=== PATIENT | female | born 1980 | race Caucasian/White ===

== ENCOUNTER 2020-10-03 12:47 | Outpatient (REF) | payer OTHER, SELFPAY | END 2020-10-03 12:48 | disposition home or self-care (01) | LOC: HO.LAB 12:47 | PROVIDERS: PCP Internal Medicine; Visit Provider Internal Medicine | DX: Z20.828 Contact with and (suspected) exposure to other viral communicable diseases (principal) | CPT/HCPCS: C9803; U0003 ==

== ENCOUNTER 2022-08-20 09:56 | Outpatient (REF) | payer OTHER, SELFPAY ==
--- NOTE | ~2022-08-20 | US_ITS ---
EXAMINATION: LEFT LOWER EXTREMITY DEEP VENOUS ULTRASOUND CLINICAL INFORMATION: SIDE lower extremity complaint. COMPARISON: None. TECHNIQUE: Duplex Doppler imaging with compression maneuvers were performed of the left lower extremity deep venous system. FINDINGS: The visualized common femoral, femoral and popliteal veins demonstrate normal compressibility and color flow without evidence of venous thrombosis. Visualized portions of the calf veins demonstrate normal color fill-in suggesting patency. Within the popliteal fossa there is a mildly complex Keller's cyst which measures approximately 3.2 x 1.4 x 1.8 cm. Within the distal aspect of the anteromedial calf there is a mildly complex superficial fluid collection which measures approximately 5 x 1 cm. US/US venous duplex LE LT IMPRESSION: -No evidence of deep venous thrombosis involving the left lower extremity. -Small to moderate-sized mildly complex Keller's cyst. -Mildly complex superficial fluid collection within the anteromedial distal calf. Clinical correlation is recommended. There is no abnormal color flow to suggest an abscess. This may represent a hematoma in the setting of recent trauma. Follow-up ultrasound imaging can be obtained versus cross-sectional imaging if deemed clinically appropriate.
[2022-08-20 10:34] LABS: MANUAL DIFF FLAG NO
[2022-08-20 10:44] LABS: Basophils Absolute Auto 0.1 X10*3/uL (0.0-0.2); Basophils Percent Auto 1.1 % (0-2); Eosinophils Absolute Auto 0.3 X10*3/uL (0.0-0.4); Eosinophils Percent Auto 4.8 % (0-4); Hematocrit 39.1 % (37.0-47.0); Hemoglobin 12.9 g/dl (12.0-16.0); Imm Gran Abs Auto 0.01 X10*3/uL (0.00-0.03); Imm Gran Pct Auto 0.2 % (0.0-0.4); Lymphocytes Absolute Auto 2.5 X10*3/uL (1.2-4.9); Lymphocytes Percent Auto 46.9 % (20-40); Mean Corpuscular Hemoglobin 30.4 pg (27.0-33.0); Mean Platelet Volume 10.2 fL (9.4-12.3); Monocytes Absolute Auto 0.4 X10*3/uL (0.1-1.2); Monocytes Percent Auto 8.2 % (2-11); Neutrophils Percent Auto 38.8 % (45-73); Platelet Count 228 X10*3/uL (160-400); Red Blood Count 4.25 X10*6/uL (4.20-5.50); White Blood Count 5.3 X10*3/uL (4.8-10.8)
[2022-08-20 11:29] LABS: Alanine Aminotransferase 19 U/L (0-31); Alkaline Phosphatase 49 U/L (39-117); Anion Gap 10 (12-20); Aspartate Amino Transferase 23 U/L (5-31); Bilirubin Total 0.8 mg/dL (0.0-1.0); Blood Urea Nitrogen 18 mg/dL (9-16); C Reactive Protein < 0.10 mg/dL (< or = 0.50); Calcium 9.5 mg/dL (8.4-10.2); Carbon Dioxide 28 mmol/L (22-29); Chloride 105 mmol/L (96-108); Cholesterol 201 mg/dL; Estimated Glomerular Filt Rate > 60; Glucose Fasting 102 mg/dL (60-99); Sodium 139 mmol/L (135-145); Total Protein 6.4 g/dL (6.5-8.0)
== END 2022-08-20 09:57 | disposition home or self-care (01) ==
LOC: HO.10HDL 09:56
PROVIDERS: Visit Provider Internal Medicine
DX: Z00.00 Encounter for general adult medical examination without abnormal findings (principal); S80.12XA Contusion of left lower leg, initial encounter; R60.0 Localized edema; X58.XXXA Exposure to other specified factors, initial encounter; Y93.9 Activity, unspecified; Y92.9 Unspecified place or not applicable; Y99.9 Unspecified external cause status
CPT/HCPCS: 36415; 80053; 82465; 82550; 85025; 86140; 93971

== ENCOUNTER 2022-09-16 11:43 | Outpatient (REF) | payer OTHER, SELFPAY ==
--- NOTE | ~2022-09-16 | XR_ITS ---
EXAMINATION: XR TIBIA AND FIBULA, LEFT CLINICAL INFORMATION: Cellulitis. Question osteomyelitis. COMPARISON: None TECHNIQUE: AP and lateral views of the left tibia and fibula were obtained. FINDINGS: No fracture of the tibia or fibula. There is mild soft tissue swelling along the medial aspect of the lower calf with a small focus of suspected subcutaneous emphysema. Underlying bony structures are intact. No radiopaque foreign body. XR/XR tibia fibula LT 2V IMPRESSION: -Soft tissue swelling of the lower calf with suspected subcutaneous emphysema. -No radiographic evidence to suggest osteomyelitis.
[2022-09-16 13:57] LABS: MANUAL DIFF FLAG NO
[2022-09-16 14:09] LABS: Basophils Absolute Auto 0.1 X10*3/uL (0.0-0.2); Basophils Percent Auto 1.1 % (0-2); Eosinophils Absolute Auto 0.2 X10*3/uL (0.0-0.4); Eosinophils Percent Auto 2.9 % (0-4); Hemoglobin 12.6 g/dl (12.0-16.0); Imm Gran Abs Auto 0.02 X10*3/uL (0.00-0.03); Imm Gran Pct Auto 0.3 % (0.0-0.4); Lymphocytes Absolute Auto 2.6 X10*3/uL (1.2-4.9); Lymphocytes Percent Auto 42.5 % (20-40); Mean Corpuscular HGB Conc 33.2 g/dl (31.0-35.0); Mean Corpuscular Hemoglobin 30.6 pg (27.0-33.0); Mean Corpuscular Volume 92.2 fL (80.0-98.0); Mean Platelet Volume 10.6 fL (9.4-12.3); Monocytes Absolute Auto 0.5 X10*3/uL (0.1-1.2); Monocytes Percent Auto 7.5 % (2-11); Neutrophils Absolute Auto 2.8 x10*3/uL (2.0-8.3); Neutrophils Percent Auto 45.7 % (45-73); Platelet Count 248 X10*3/uL (160-400); Red Blood Count 4.12 X10*6/uL (4.20-5.50); White Blood Count 6.1 X10*3/uL (4.8-10.8)
[2022-09-16 15:05] LABS: Alanine Aminotransferase 18 U/L (0-31); Albumin Level 4.2 g/dL (3.5-5.0); Alkaline Phosphatase 57 U/L (39-117); Anion Gap 10 (12-20); Aspartate Amino Transferase 26 U/L (5-31); Bilirubin Total 0.8 mg/dL (0.0-1.0); Blood Urea Nitrogen 20 mg/dL (9-16); C Reactive Protein < 0.10 mg/dL (< or = 0.50); Calcium 9.4 mg/dL (8.4-10.2); Carbon Dioxide 27 mmol/L (22-29); Chloride 108 mmol/L (96-108); Estimated Glomerular Filt Rate > 60; Glucose Random 87 mg/dL (60-115); Potassium 4.2 mmol/L (3.3-5.1); Sodium 141 mmol/L (135-145); Total Protein 6.5 g/dL (6.5-8.0)
== END 2022-09-16 11:44 | disposition home or self-care (01) ==
LOC: HO.10HDL 11:43
PROVIDERS: Visit Provider Internal Medicine
DX: L03.116 Cellulitis of left lower limb (principal)
CPT/HCPCS: 36415; 73590; 80053; 82550; 85025; 86140; 87070; 87077; 87147; 87186; 87205

== ENCOUNTER 2022-09-30 11:34 | Outpatient (REF) | payer OTHER, SELFPAY ==
--- NOTE | ~2022-09-30 | US_ITS ---
EXAMINATION: US LOWER EXTREMITY VENOUS (REFLUX EXAM), BILATERAL CLINICAL INDICATION: Chronic venous insufficiency with lower extremity varicose veins COMPARISON: None. TECHNIQUE: Color flow triplex imaging and compression Doppler was performed to evaluate both the deep and the superficial systems bilaterally. To evaluate the superficial system, the examination was performed in the upright position. Color-flow Doppler ultrasound and compression ultrasound were utilized. In addition, maneuvers were utilized to demonstrate reflux. FINDINGS: 1. DEEP VENOUS ULTRASOUND OF THE RIGHT LOWER EXTREMITY: Common Femoral Vein: Compressible, normal respiratory variation and augmented flow. Femoral Vein: Compressible, normal color flow and augmentation. Popliteal Vein: Compressible, normal augmentation. Deep Reflux: There is no evidence of reflux in the deep system in either the common femoral vein or the popliteal vein. There is no evidence of a Keller's cyst. 2. SUPERFICIAL ULTRASOUND WITH DOPPLER OF RIGHT LOWER EXTREMITY: GREAT SAPHENOUS VEIN: Saphenofemoral Junction: 0.7 cm; Reflux: 0 ms Proximal Thigh: 0.7 cm; Reflux: 808 ms Mid Thigh: 0.5 cm; Reflux: 2506 ms Above Knee: 0.5 cm; Reflux: 2176 ms At Knee: 0.5 cm; Reflux: 2412 ms Below Knee: 0.4 cm; Reflux: 0 ms Mid Calf: 0.2 cm; Reflux: 0 ms Ankle: 0.2 cm; Reflux: 0 ms DUPLICATED MEDIAL GREAT SAPHENOUS VEIN: Diameter: None Imaged Reflux: NA DUPLICATED LATERAL GREAT SAPHENOUS VEIN: Diameter: 0.3 cm Reflux: None SMALL SAPHENOUS VEIN: Proximal: 0.4 cm; Reflux: 0 ms Distal: 0.3 cm; Reflux: 0 ms VEIN OF GIACOMINI: None Imaged. PERFORATORS: Location: None significant Size: NA Reflux: NA VARICOSITIES: Location: Proximal thigh, knee, proximal calf and distal posterior calf Size: 0.3 to 0.4 cm Reflux: Ranging from 700 ms to 1004 ms 3. DEEP VENOUS ULTRASOUND OF THE LEFT LOWER EXTREMITY: Common Femoral Vein: Compressible, normal respiratory variation and augmented flow. Femoral Vein: Compressible, normal color flow and augmentation. Popliteal Vein: Compressible, normal augmentation. Deep Reflux: There is no evidence of reflux in the deep system in either the common femoral vein or the popliteal vein. There is a Keller's cyst in the popliteal fossa measuring 3.4 x 1.3 x 1.5 cm 4. SUPERFICIAL ULTRASOUND WITH DOPPLER OF LEFT LOWER EXTREMITY: GREAT SAPHENOUS VEIN: Saphenofemoral Junction: 0.9 cm; Reflux: 0 ms Proximal Thigh: 0.6 cm; Reflux: 0 ms Mid Thigh: 0.5 cm; Reflux: 0 ms Above Knee: 0.4 cm; Reflux: 0 ms At Knee: 0.4 cm; Reflux: 0 ms Below Knee: 0.3 cm; Reflux: 0 ms Mid Calf: 0.2 cm; Reflux: 0 ms Ankle: 0.2 cm; Reflux: 0 ms DUPLICATED MEDIAL GREAT SAPHENOUS VEIN: Diameter: None Imaged Reflux: NA DUPLICATED LATERAL GREAT SAPHENOUS VEIN: Diameter: 0.4 cm Reflux: None SMALL SAPHENOUS VEIN: Proximal: 0.3 cm; Reflux: 0 ms Distal: 0.2 cm; Reflux: 0 ms VEIN OF GIACOMINI: None Imaged. PERFORATORS: Location: None significant Size: NA Reflux: NA VARICOSITIES: Location: Proximal thigh, mid thigh, knee and calf Size: 0.3 cm Reflux: 724 ms in the mid calf US/US venous duplex LE BI IMPRESSION: Right: Severe reflux in the right great saphenous vein as described above. Multiple varicose veins throughout the right lower extremity as described above Left: No significant reflux in the left great saphenous vein or small saphenous vein. Multiple varicose veins throughout the left lower extremity as described above. There is a Keller's cyst in the left popliteal fossa
== END 2022-09-30 11:35 | disposition home or self-care (01) ==
LOC: HO.US 11:34
PROVIDERS: Visit Provider Surgery Vascular Surgery
DX: I83.12 Varicose veins of left lower extremity with inflammation (principal)
CPT/HCPCS: 93970

== ENCOUNTER → 2022-10-17 11:46 | Outpatient (BNVA) | payer OTHER, SELFPAY | PROVIDERS: PCP Internal Medicine; Visit Provider Surgery Vascular Surgery | DX: Z13.89 Encounter for screening for other disorder (principal) ==

== ENCOUNTER 2025-06-02 10:57 | Outpatient (AMB) | payer OTHER, SELFPAY ==
--- NOTE | 2025-06-02 10:57 | MHC.OFFVIS ---
Intake Visit Reasons: hematuria- new pt Intake Note: New patient presents today for initial visit for hematuria Urology Medication:None Blood Thinner:None Antibiotic Allergies:None Allergies No Known Allergies (No Known Allergies*) Allergy (Verified 06/02/25 11:07) Medication List - Last Reconciled 06/02/25 by LUIS ANGEL Salazar- montelukast 10 mg PO DAILY sulfamethoxazole-trimethoprim 800-160 mg 1 tab PO BID tamoxifen 20 mg PO DAILY HPI Comments Details: Tiara is a very pleasant 44 year old female patient of Dr. Ruiz. She is being followed up on today via telehealth for gross hematuria. In discussion with the patient today she reports approximately 2 weeks ago she started experiencing dysuria and gross hematuria at which time she followed up with her PCP and was prescribed an antibiotic for 5 days that she has since completed (unsure of name of antibiotic). She reports having called office after completion of antibiotic therapy as she had still been experiencing symptoms and most recently was given Bactrim b.i.d. for 7 days and is due to complete course on Monday 06/04. She does feel symptoms of dysuria and gross hematuria has subsided however she continues to have frequency and bladder pressure. She denies incontinence, nocturia, dysuria, foul smelling urine, changes to urinary stream, flank pain, fever, and or chills. We discussed potential causes of lower urinary tract symptoms and gross hematuria. We discussed further workup and risks and benefits of these interventions. All questions were answered. She denies any issues with constipation. She does endorse to drinking plenty of water daily. She otherwise offers no other issues or concerns at this time. [facility] Social History Patient Tobacco Use Status: Never used Tobacco Review of Systems Const All systems reviewed & are unremarkable except as noted in HPI and below Physical Exam Const General: cooperative, healthy appearing, comfortable, no acute distress, well developed, alert and awake Orientation/consciousness: patient oriented x3 Resp Effort & Inspection: normal respiratory effort and able to speak in complete sentences Neuro General: patient oriented x3 Psych Appearance: well kempt Mental Status: mental status grossly normal Speech and movement: Clear speech present Affect: normal affect Attitude: cooperative Thought content: Normal thought content present Insight: Fair insight present (Psych) Judgement: Fair judgement present (Psych) Telehealth Telehealth [facility] Location of provider rendering services: practice address Location of patient: address on file Patient Identification confirmed using: Name, : Yes Telehealth method: video Patient verbally consented to treatment: Yes Patient verbally consented to billing insurance company: Yes Patient informed of any privacy concerns related to visit: Yes Minutes spent on Phone/Video with Pt.: 15 Assessment & Plan Assessment & Plan (1) Gross hematuria: Code(s): R31.0 - Gross hematuria Category: Medical (2) Lower urinary tract symptoms: Code(s): R39.9 - Unspecified symptoms and signs involving the genitourinary system Category: Medical (3) Dysuria: Code(s): R30.0 - Dysuria Category: Medical (4) Urinary frequency: Code(s): R35.0 - Frequency of micturition Category: Medical Plan We discussed potential causes of gross hematuria and lower urinary tract symptoms patient is experiencing; we discussed further treatment options and risks and benefits of these treatment options. Will obtain CT urogram for further assessment evaluation. We discussed importance of completing antibiotic therapy as prescribed. Will obtain urine culture status post treatment 24-48 hours after; orders placed. Discussed, educated, and stressed the importance of adequate hydration relation to lower urinary tract symptoms as well as overall health and well-being. Follow-up in 1-2 weeks; or sooner with any issues, concerns, and or questions. Orders: Orders CT urogram Today R31.0 - Gross hematuria Blood Urea Nitrogen Today R39.15 - Urgency of urination Creatinine Today R39.15 - Urgency of urination UA CC w/rflx Micro + Cult 06/06/25 R30.0 - Dysuria, R31.0 - Gross hematuria, R35.0 - Frequency of micturition, R39.9 - Unspecified symptoms and signs involving the genitourinary system Medications: Discontinued silver sulfadiazine 1% (Silvadene) apply a 1.5 mm thickness to left leg wound daily Discontinued Reason: Patient no longer taking 1 appl topical DAILY 20 grams 0RF I83.12 - Varicose veins of left lower extremity with inflammation Patient Instructions: The patient had an opportunity to ask questions regarding the treatment plan. All questions were answered. Physical exam, labs, and imaging were discussed and reviewed in detail. As well as risks, benefits, and discussion of treatment choices. No major barriers to understanding were identified. The patient expressed understanding and agreement with the above treatment plan. The patient was made aware they should contact our office by phone for worsening of their current condition, the appearance of new symptoms, or with any questions or concerns. Compliance is encouraged with any medications and follow up testing that is ordered. It is a privilege to be allowed the opportunity to participate in? your urological care.? Again, if you have any questions or concerns If you have any questions or concerns please do not hesitate to contact me. The office is [phone]. This note is constructed using voice recognition software. While every effort has been made to ensure accuracy cavalry officer errors may have been included. Yours sincerely, ROBE Salazar Coding Level of Care Code Tele New Pt Level 3 (26599) Diagnoses Gross hematuria R31.0 Lower urinary tract symptoms R39.9 Dysuria R30.0 Urinary frequency R35.0
--- OUTSIDE RECORDS SUMMARY | 2025-06-02 12:28 | XMS_ITS | Clinical Summary ---
Author Organization [facility] Address [address] [place] [address] Phone Care Team Providers Care Cow Tester Name Role Phone David Ojeda MD Primary Care Provider Self-Referred, Patient Unavailable Unavailab le Allergies No known active allergies Active Problems Problem Noted Date Diagnosed Date Low-lying placenta 09/27/2013 Overview (12/03/2014): Low lying placenta; RESOLVED @ 28 weeks Low back pain 09/27/2013 Overview (12/03/2014): Low back pain Uncoded RUBELLA STATUS - EQUIVOCAL 07/28/2013 Overview (12/03/2014): RUBELLA STATUS - EQUIVOCAL Advanced maternal age (AMA), 40 years or greater 07/21/2013 Overview (12/03/2014): AMA - advanced maternal age; Will be 33 at time of delivery Uncoded Rh incompatability 07/15/2013 Overview (12/03/2014): Rh incompatability Allergic rhinitis 06/21/2005 Overview (12/03/2014): Allergic rhinitis; dust and seasonal Asthma 05/16/2004 Overview (12/03/2014): Asthma; mild, exercise induced Immunizations Immunization Administration Dates Next Due INFLUENZA, SPLIT VIRUS, TRIV ALENT W/ PRESERVATIVE IM 08/18/2013 Immune Globulin 12/06/2013,10/19/2010 Influenza, Unspecified Formulation 07/28/2012, Tdap 03/01/2014(Deferred: Other - , Ordered By: [id number]),12/06/2013,01/23/2011 Family History Medical History Relation Comments Type 2 Diabetes Father diabetes mellitu s type 2 Stroke Maternal Grandmother cerebrovasc ular accident Breast cancer Paternal Aunt Type 2 Diabetes Paternal Grandfather diabetes me llitus type 2 Relation Status Comments Father Maternal Grandmother Paternal Aunt Paternal Grandfather Social History Tobacco Use Types Packs/Day Years Used Date Smoking Tobacco: Never Tobacco Cessation:Counseling Given: Not Answered Child or Family Care Answer Date Record ed Do you have problems with on e of the following making it difficult for you to work, study, or receive health care? No 08/10/2023 Education Answer Date Recorded Are you interested in help w ith more adult education (for example, completing high school, GED, job training, learning the [place] language, technical skills, or developing parenting skills)? No 08/10/2023 Are you concerned about learning? Not on file 08/10/2023 No 08/10/2023 Yes 08/10/2023 Food Answer Date Recorded Within the past 6 months we worried whether our food would run out before we got money to buy more. Never True 08/10/2023 Within the past 6 months the food we bought just didn't last and we didn't have enough money to get more. Never True Residential Stability Answer Date Recor ded What is your housing situation today? I have nina sing 08/10/2023 How many times have you move d in the past 12 months? Zero (I did not move) 08/10/2023 Paying for Meds Answer Date Recorded Do you have trouble paying for medicines? No 08/10/2023 Paying Utility Bills Answer Date Record ed Do you have trouble paying your heating or elect ricity bill? No 08/10/2023 Transportation Answer Date Recorded Has the lack of transportati on kept you from medical appointments or from getting medications? No 08/10/2023 Unemployment Answer Date Recorded Are you currently unemployed or working on a part-time or temporary basis, and looking for work? No 08/10/2023 Digital Access Answer Date Recorded No 03/09/2023 No 03/09/2023 Reliable internet access at home? Not on file 03/09/2023 Device with a working camera? Not on file Comments Unknown Sex and Gender Information Value Date Recorded Sex Assigned at Female 07/28/2023 11:28 AM EDT Legal Sex Female 6:57 PM EST Gender Identity Female 07/28/2023 11:28 AM EDT Sexual Orientation Straight 07/28/2023 11 :28 AM EDT Last Filed Vital Signs Vital Sign Reading Time Taken Comments Blood Pressure 130/79 08/11/2023 10:37 AM EDT Pulse 65 08/11/2023 10:37 AM EDT Temperature 37.1 C (98.8 F) 08/11/2023 10:37 AM EDT Respiratory Rate 12 08/11/2023 10:37 AM EDT Oxygen Saturation 98% 08/11/2023 10:37 AM EDT Inhaled Oxygen Concentration - - Weight 72.3 kg (159 lb 6.3 oz) 08/11/2023 10:37 AM EDT Height 164.5 cm (5' 4.76 ) 08/11/2023 10:37 AM E DT Body Mass Index 26.72 08/11/2023 10:37 AM EDT Plan of Treatment Health Maintenance Due Date Last Done Comments DEPRESSION SCREENING 1990 HEPATITIS C SCREENING 1996 PNEUMOCOCCAL VACCINES (0-49 years) (1 of 2 - PCV) 1997 SMOKING STATUS SCREENING (Once After 26 Yrs) 2004 SCREENING FOR DIABETES 2013 04/02/2010 LIPID PANEL 04/02/2015 04/02/2010 PAP SMEAR 07/21/2018 07/21/2013, 03/14, 04/02/2010, Additional history exists MAMMOGRAM 2018 COLOGUARD 2023 COLONOSCOPY 2023 COLORECTAL CANCER SCREENING 2023 FIT TEST 2023 FOBT 2023 SIGMOIDOSCOPY 2023 VIRTUAL COLONOSCOPY 2023 COVID-19 VACCINE ( season) 2024 02/24/2021, 02/03/2021 Adult Td,Tdap Booster 02/03/2028 02/02/2018 , 12/06/2013, 01/23/2011 HIV ONE-TIME SCREENING (18-65 YEARS) Completed 07/21/2013, 02/25/2008 HEPATITIS A VACCINES Aged Out No long er eligible based on patient's age to complete this topic HIB VACCINES Aged Out No longer eligi ble based on patient's age to complete this topic MENINGOCOCCAL VACCINES (ACWY) Aged Out No longer eligible based on patient's age to complete this topic MENINGOCOCCAL VACCINES (B) Aged Out N o longer eligible based on patient's age to complete this topic Medical Devices Not on file Procedures Procedure Name Priority Date/Time Associated Diagnosis Comments PAP TEST Routine 07/21/2013 12:00 AM EDT HISTORICAL LAB Routine 04/02/2010 12:00 PM EDT from Last 3 Months or Most Recently Relevant to Health Maintenance Results * Pap Smear (07/21/2013 12:00 AM EDT) 07/21/2013 Narrative [facility] - 07/21/2013 12:00 AM EDT Accession Number: [id number] Report Status: Final Type: Cytology Date: 07/21/2013 Ordering Provider: LYNN SWANSON Comment: FASTING: NO DATA PROVIDED COLLECTION DATE: [id number] RECEIVED DATE: SPECIMEN REPORTED DATE: Unless otherwise noted,Test Performed At: [facility] [address] [place] [address], [id number], MORGAN BARRETO M.D. THINPREP TIS PAP AND HR HPV DNA THINPREP TIS PAP AND HR HPV DNA REPORT STATUS: NOT REPORTED CLINICAL INFORMATION: Normal exam LMP: 05/20/13 PREV. PAP: NONE GIVEN PREV. BX: NONE GIVEN SOURCE: [facility] STATEMENT OF ADEQUACY: Satisfactory for evaluation. Endocervical/transformation zone component present. GENERAL CATEGORIZATION: NOT REPORTED INTERPRETATION/RESULT: Negative for intraepithelial lesion or malignancy. INFECTION: Fungal organisms morphologically consistent with Yancy spp. COMMENT: This Pap test has been evaluated with computer assisted technology. SLAT BASKET MAKER HELPER: ROSETTA PICHARDO(ASCP) REVIEW SLAT BASKET MAKER HELPER: NOT REPORTED PATHOLOGIST: NOT REPORTED HPV DNA (HIGH RISK) NOT DETECTED NOT DETECTED Tested for high risk types 16,18,31,33,35,39,45,51,52, 56,58,59,68. The analytical performance characteristics of this assay, when used to test SurePath or vaginal specimens, have been determined by [employer]. Methodology: Hybrid Capture with Signal Amplification. us Lynn Swanson MD CYTOLOGY ORDERABLES Final Re sult [facility] [address] [place] [address] * Historical Lab (04/02/2010 12:00 PM EDT) HCG, Quant <6 <6 IU/L [facility] Comment: NON-: <6 BORDERLINE: 6-15 High Density Lipoprotein 62 35 - 100 mg/dl [facility] Cholesterol 190 mg/dl [facility] Comment:DESIRABLE: <200 Triglycerides 41 40 - 150 mg/dl [facility] Low Density Lipoprotein 120 mg/dl [facility] Comment:DESIRABLE: <130 Cardiac Risk Ratio 3.1 [facility] Comment:NORMAL RISK RATIO: 5 .0 OR LESS Plasma Glucose 98 70 - 110 mg/dl [facility] 04/02/2010 12:0 0 PM EDT 04/02/2010 1:51 PM EDT Comment:BLOOD us Rand Salguero MD LAB BLOOD ORDERABLES Final Result [facility] [address] [place] [address] from Last 3 Months or Most Recently Relevant to Health Maintenance [place] [address] [place] [address] [facility] [place] [place] [facility] UMR Advance Directives For more information, please contact: [phone] (9AM - 5PM [facility], Friday-Friday) Documents on File Type Date Recorded Patient Rag Room Supervisor Expl anation Advance Directive - Non Epic LMR 09/28/2008 12:00 AM Care Teams Cow Tester Relationship Specialty Start Date End Date David Ojeda MD [address] [place] [address] [place] [address] PCP - General Internal Medicine 07/28/23 Self-Referred, Patient 07/28/23 Additional Source Comments The information contained in this document represents components of the legal health record. It is not the complete legal health record.[facility]
== END 2025-06-02 11:28 | disposition home or self-care (01) ==
LOC: HO.HUSH 10:57
PROVIDERS: PCP Internal Medicine; Visit Provider Nurse Practitioner Family
DX: R31.0 Gross hematuria (principal); R39.9 Unspecified symptoms and signs involving the genitourinary system; R30.0 Dysuria; R35.0 Frequency of micturition
CPT/HCPCS: 99203

== ENCOUNTER 2025-06-06 09:23 | Outpatient (REF) | payer OTHER, SELFPAY ==
--- OUTSIDE RECORDS SUMMARY | 2025-06-06 10:08 | XMS_ITS | Clinical Summary ---
Author Organization [facility] Address [address] [place] [address] Phone Care Team Providers Care Manager Of Application Development Name Role Phone David Ojeda MD Primary [...] Tdap 03/01/2014(Deferred: Other - , Ordered By: [id number]),12/06/2013,01/23/2011 Family History Medical History Relation Comments Type [...] high school, GED, job training, learning the [place] language, technical skills, or developing parenting skills)? [...] - 07/21/2013 12:00 AM EDT Accession Number: [id number] Report Status: Final Type: Cytology Date: 07/21/2013 Ordering Provider: LYNN SWANSON Comment: FASTING: NO DATA PROVIDED COLLECTION DATE: [id number] RECEIVED DATE: SPECIMEN REPORTED DATE: Unless otherwise noted,Test Performed At: [facility] [address] [place] [address], [id number], MORGAN BARRETO M.D. THINPREP TIS PAP AND [...] has been evaluated with computer assisted technology. DIRECT SUPPORT PROFESSIONAL: ROSETTA PICHARDO(ASCP) REVIEW DIRECT SUPPORT PROFESSIONAL: NOT REPORTED PATHOLOGIST: NOT REPORTED HPV DNA (HIGH RISK) NOT DETECTED NOT DETECTED Tested for high risk types 16,18,31,33,35,39,45,51,52, 56,58,59,68. The analytical performance characteristics of this assay, when used to test SurePath or vaginal specimens, have been determined by [employer]. Methodology: Hybrid Capture with Signal Amplification. us Lynn Swanson MD CYTOLOGY ORDERABLES Final Re sult [facility] [address] [place] [address] * Historical Lab (04/02/2010 12:00 PM EDT) HCG, Quant <6 <6 IU/L [facility] Comment: NON-: <6 BORDERLINE: 6-15 High Density Lipoprotein 62 35 - 100 mg/dl [facility] Cholesterol 190 mg/dl [facility] Comment:DESIRABLE: <200 Triglycerides 41 40 - 150 mg/dl [facility] Low Density Lipoprotein 120 mg/dl [facility] Comment:DESIRABLE: <130 Cardiac Risk Ratio 3.1 [facility] Comment:NORMAL RISK RATIO: 5 .0 OR LESS Plasma Glucose 98 70 - 110 mg/dl [facility] 04/02/2010 12:0 0 PM EDT 04/02/2010 1:51 PM EDT Comment:BLOOD us Rand Salguero MD LAB BLOOD ORDERABLES Final Result [facility] [address] [place] [address] from Last 3 Months or Most Recently Relevant to Health Maintenance [place] [address] [place] [address] [facility] [place], [place] [facility] UMR Advance Directives For more information, please contact: [phone] (9AM - 5PM [facility], Friday-Friday) Documents on File Type Date Recorded Patient Product Steward Expl anation Advance Directive - Non Epic LMR 09/28/2008 12:00 AM Care Teams Manager Of Application Development Relationship Specialty Start Date End Date David Ojeda MD [address] [place] [address] [place] [address] PCP - General Internal Medicine 07/28/23 Self-Referred, Patient 07/28/23 Additional Source Comments The information contained in this document represents components of the legal health record. It is not the complete legal health record.[facility]
[2025-06-06 10:46] LABS: Appearance Urine Clear; Glucose Urine UA Negative (Negative); PH 6.0 (5.0-9.0); Specific Gravity - Urine 1.015 (1.005-1.025)
[2025-06-06 10:55] LABS: Blood Urea Nitrogen 13 mg/dL (9-16); Estimated Glomerular Filt Rate > 60
== END 2025-06-06 09:24 | disposition home or self-care (01) ==
LOC: HO.LAB 09:23
PROVIDERS: PCP Nurse Practitioner; Visit Provider Nurse Practitioner Family
DX: R31.0 Gross hematuria (principal); R30.0 Dysuria; R35.0 Frequency of micturition; R39.15 Urgency of urination
CPT/HCPCS: 36415; 81003; 82565; 84520

== ENCOUNTER 2025-06-27 14:20 | Outpatient (REF) | payer OTHER, SELFPAY ==
--- NOTE | ~2025-06-27 | CT_ITS ---
EXAMINATION: CT ABDOMEN PELVIS UROGRAPHY WITHOUT THEN WITH IV CONTRAST HISTORY: R31.0 - Gross hematuria COMPARISON: There are no prior studies available for comparison. TECHNIQUE: CT scan of the abdomen and pelvis was performed before and after the intravenous administration of 85 mL Omnipaque 350. Postcontrast images were obtained using a split bolus technique. Coronal and sagittal reformatted images were generated and reviewed. Oral contrast material was not administered per department protocol. This CT exam was performed with one or more of the following dose reduction techniques: automated exposure control, adjustment of the mA and/or kV according to patient size, use of iterative reconstruction technique. DLP: 546 mGy-cm ABDOMEN: LOWER CHEST: The visualized lung bases are clear. There is no pleural effusion. CARDIOVASCULATURE: The heart is normal in size. There is no pericardial effusion. LIVER: The liver is normal in size and contour. There is a 2.2 x 1.3 cm mass at the dome which demonstrates peripheral nodular enhancement and likely represents a hemangioma. The hepatic and portal veins are patent. GALLBLADDER / BILE DUCTS: The gallbladder is unremarkable. There is no intra or extrahepatic biliary ductal dilatation. SPLEEN: The spleen is normal in size. No focal splenic lesion is identified. PANCREAS: The pancreas is unremarkable in appearance. ADRENAL GLANDS: Within normal limits. KIDNEYS/RETROPERITONEUM: There is a punctate nonobstructing calculus at the lower pole of the left kidney. No right renal calculi are identified.. There is no hydronephrosis. No renal masses are identified. The intrarenal collecting systems are unremarkable. The ureters are normal in caliber. No ureteral filling defects are identified. LYMPH NODES: No abdominal or pelvic lymphadenopathy. VASCULATURE: The abdominal aorta is normal in caliber. MESENTERY/PERITONEUM: No free fluid. No masses. There is no free intraperitoneal gas. STOMACH: The stomach is collapsed, limiting evaluation. SMALL BOWEL: The small bowel is normal in caliber. COLON: The colon is unremarkable. APPENDIX: The appendix is not seen, however no inflammatory changes are seen adjacent to the cecum . URINARY BLADDER/PELVIC ORGANS: The urinary bladder is nondistended, limiting evaluation. The uterus is unremarkable. There are bilateral ovarian follicles. BONES / SOFT TISSUES: There is degenerative disc disease at the L5-S1 level. CT/CT urogram IMPRESSION: 1. Punctate nonobstructing calculus at the lower pole of the left kidney. Otherwise unremarkable CT urogram. 2. Probable 2.2 x 1.3 cm hemangioma at the dome of the liver. Electronically signed by: Jitendra Hawkins MD 06/27/2025 03:23 PM EDT
[2025-06-27] MEDS: iohexoL 350 MG/ML 100 ML INFUS..BTL 85 ML IV (15:12)
--- OUTSIDE RECORDS SUMMARY | 2025-06-27 19:44 | XMS_ITS | Clinical Summary ---
Author Organization [facility] Address [address] [place] [address] Phone Care Team Providers Care City Solicitor Name Role Phone David Ojeda MD Primary [...] Tdap 03/01/2014(Deferred: Other - , Ordered By: [id number]),12/06/2013,01/23/2011 Family History Medical History Relation Comments Type [...] high school, GED, job training, learning the [place] language, technical skills, or developing parenting skills)? [...] COVID-19 VACCINE ( season) 2024 02/24/2021, 02/03/2021 INFLUENZA VACCINE (#1) 2025 , 08/10/2020, 08/06/2019, Additional history exists Adult Td,Tdap Booster 02/03/2028 02/02/2018 , 12/06/2013, [...] Smear (07/21/2013 12:00 AM EDT) 07/21/2013 Narrative [facility] - 07/21/2013 12:00 AM EDT Accession Number: [id number] Report Status: Final Type: Cytology Date: 07/21/2013 Ordering Provider: LYNN SWANSON Comment: FASTING: NO DATA PROVIDED COLLECTION DATE: [id number] RECEIVED DATE: SPECIMEN REPORTED DATE: Unless otherwise noted,Test Performed At: [facility] [address] [place] [address], [id number], MORGAN BARRETO M.D. THINPREP TIS PAP AND [...] has been evaluated with computer assisted technology. OILFIELD PLANT AND FIELD OPERATOR: ROSETTA PICHARDO(ASCP) REVIEW OILFIELD PLANT AND FIELD OPERATOR: NOT REPORTED PATHOLOGIST: NOT REPORTED HPV DNA (HIGH RISK) NOT DETECTED NOT DETECTED Tested for high risk types 16,18,31,33,35,39,45,51,52, 56,58,59,68. The analytical performance characteristics of this assay, when used to test SurePath or vaginal specimens, have been determined by [facility]. Methodology: Hybrid Capture with Signal Amplification. us Lynn Swanson MD CYTOLOGY ORDERABLES Final Re sult Performing Organization Address City/State/[facility] Co de Phone Number [facility] [address] [place] [address] * Historical Lab (04/02/2010 12:00 PM EDT) HCG, Quant <6 <6 IU/L [facility] Comment: NON-: <6 BORDERLINE: 6-15 High Density Lipoprotein 62 35 - 100 mg/dl [facility] Cholesterol 190 mg/dl [facility] Comment:DESIRABLE: <200 Triglycerides 41 40 - 150 mg/dl [facility] Low Density Lipoprotein 120 mg/dl [facility] Comment:DESIRABLE: <130 Cardiac Risk Ratio 3.1 [facility] Comment:NORMAL RISK RATIO: 5 .0 OR LESS Plasma Glucose 98 70 - 110 mg/dl [facility] 04/02/2010 12:0 0 PM EDT 04/02/2010 1:51 PM EDT Comment:BLOOD us Rand Salguero MD LAB BLOOD ORDERABLES Final Result [address] [address] from Last 3 Months or Most Recently Relevant to Health Maintenance Insurance [facility] Advance Directives For more information, please contact: [phone] (9AM - 5PM [place], Friday-Friday) Documents on File Type Date Recorded Patient Strainer Tender Expl anation Advance Directive - Non Epic LMR 09/28/2008 12:00 AM Care Teams City Solicitor Relationship Specialty Start Date End Date Croke, David Leroy, MD [address] [place] [address] Dr Motta, JAVON [address] PCP - General Internal Medicine 07/28/23 Self-Referred, Patient 07/28/23 Additional Source Comments The information contained in this document represents components of the legal health record. It is not the complete legal health record.[facility]
== END 2025-06-27 14:21 | disposition home or self-care (01) ==
LOC: HO.CT 14:20
PROVIDERS: PCP Internal Medicine; Visit Provider Nurse Practitioner Family
DX: R31.0 Gross hematuria (principal)
CPT/HCPCS: 74178; Q9967

== ENCOUNTER → 2025-06-27 14:22 | Outpatient (BNV) | payer OTHER, SELFPAY | PROVIDERS: PCP Internal Medicine; Visit Provider Radiology Diagnostic Radiology | DX: N20.0 Calculus of kidney (principal) | CPT/HCPCS: 74178 ==

== ENCOUNTER 2025-07-13 11:30 | Outpatient (REF) | payer SELFPAY | END 2025-07-13 11:31 | disposition home or self-care (01) | LOC: HO.LAB 11:30 | PROVIDERS: PCP Internal Medicine; Visit Provider Nurse Practitioner Family | DX: R31.0 Gross hematuria (principal); N20.0 Calculus of kidney | CPT/HCPCS: 81003 ==

== ENCOUNTER 2025-07-13 11:30 | Outpatient (AMB) | payer OTHER, SELFPAY ==
--- NOTE | 2025-07-13 11:33 | MHC.OFFVIS ---
Intake Visit Reasons: CT F/U Intake Note: patient presents today for: CT follow up urology medications: none blood thinners: none CT done: 06/27/25 Shale Processing Technician Required: No Accompanied by: Self / Same As Patient Allergies No Known Allergies (No Known Allergies*) Allergy (Verified 07/13/25 16:02) Medication List - Last Reconciled 07/13/25 by PATRICIA SalazarP- montelukast 10 mg PO DAILY sulfamethoxazole-trimethoprim 800-160 mg 1 tab PO BID tamoxifen 20 mg PO DAILY HPI Comments Details: Tiara is a very pleasant 44 year old female patient of Dr. Ruiz. She presents to the office today for follow-up of her gross hematuria. Of note, patient was seen approximately 2 months ago as a new patient for gross hematuria at which time a CT urogram was ordered for further assessment evaluation as well urinalysis. These results were reviewed and communicated with the patient today. CT urogram 07/07 there is punctate nonobstructing calculus at the lower pole of the left kidney. No right renal calculi are identified. There is no hydronephrosis or renal masses. The intrarenal collecting systems are unremarkable. The urinary bladder is nondistended limiting evaluation. Urinalysis 06/06 no microscopic hematuria noted. In office urinalysis results reviewed with the patient today as well negative nitrates negative leukocytes negative microscopic hematuria. We did again discussed potential causes of gross hematuria. We discussed further treatment options and risks and benefits of these treatment options. She reports no other episodes of gross hematuria. She reports feeling gross hematuria was likely related to urinary tract infection as she feels symptoms subsided shortly after initiation of antibiotic therapy with PCP. She currently denies any bothersome urinary issues or concerns. She denies urinary urgency, urinary frequency, incontinence, nocturia, dysuria, foul smelling urine, changes to urinary stream, flank pain, fever, and or chills. We discussed further workup and risks and benefits of these interventions. All questions were answered. She denies any issues with constipation. She does endorse to drinking plenty of water daily. She otherwise offers no other issues or concerns at this time. [facility] Social History Patient Tobacco Use Status: Never used Tobacco Review of Systems Const All systems reviewed & are unremarkable except as noted in HPI and below Physical Exam Const General: cooperative, healthy appearing, comfortable, no acute distress, well developed, alert and awake Nutritional Appearance: average body habitus Orientation/consciousness: patient oriented x3 Limitations: no limitations HEENT Head: Yes normal to inspection, Yes normocephalic and Yes atraumatic Ears: hearing grossly normal bilaterally Eyes General: appearance normal, both eyes and all related structures Neck Neck: Yes normal visual inspection and Yes trachea midline Chest Chest palpation & inspection: normal inspection of the chest Resp Effort & Inspection: normal respiratory effort and able to speak in complete sentences Cardio Rate: regular rate GI Inspection: Yes normal to inspection General: Yes no CVA tenderness Back/Spine/Pelvis Back: no CVA tenderness Skin General skin exam: no rashes or lesions noted Neuro General: patient oriented x3 Extrem General: Yes normal to inspection Psych Appearance: grossly normal and well kempt Mental Status: mental status grossly normal Speech and movement: Normal speech and movement present and Clear speech present Affect: normal affect Attitude: cooperative Thought process: Normal thought process present Thought content: Normal thought content present Insight: Fair insight present (Psych) Judgement: Fair judgement present (Psych) Results AMB Urinalysis, Automated UA Leukoctes 0 Milind/uL Last Edit by BRYAN Ellsworth on 07/13/25 11:48 UA Nitrite Negative Last Edit by BRYAN Ellsworth on 07/13/25 11:48 UA Urobilinogen 0.2 mg/dL Last Edit by BRYAN Ellsworth on 07/13/25 11:48 UA Protein 0 mg/dL Last Edit by BRYAN Ellsworth on 07/13/25 11:48 UA pH 7.5 Last Edit by BRYAN Ellsworth on 07/13/25 11:48 UA Blood 0 Dell/uL Last Edit by BRYAN Ellsworth on 07/13/25 11:48 UA Specific Mark Center 1.010 Last Edit by BRYAN Ellsworth on 07/13/25 11:48 UA Ketone Last Edit by BRYAN Ellsworth on 07/13/25 11:48 UA Bilirubin 0 mg/dL Last Edit by BRYAN Ellsworth on 07/13/25 11:48 UA Glucose 0 mg/dL Last Edit by BRYAN Ellsworth on 07/13/25 11:48 Results Reviewed Results Reviewed: Laboratory Last Values Urine pH (Auto) 7.5 07/13/25 11:47 Specific Mark Center (Auto) 1.010 07/13/25 11:47 Urine Protein (Auto) 0 mg/dL 07/13/25 11:47 Glucose (UA)(Auto) 0 mg/dL 07/13/25 11:47 Urine Blood (Auto) 0 Dell/uL 07/13/25 11:47 Urine Nitrite (Auto) Negative 07/13/25 11:47 Urine Bilirubin (Auto) 0 mg/dL 07/13/25 11:47 Urine Urobilinogen (Auto) 0.2 mg/dL 07/13/25 11:47 Leukocyte Esterase (Auto) 0 Milind/uL 07/13/25 11:47 Date of Service: 06/27/25 Procedure(s): CT urogram ABDOMEN: LOWER CHEST: The visualized lung bases are clear. There is no pleural effusion. CARDIOVASCULATURE: The heart is normal in size. There is no pericardial effusion. LIVER: The liver is normal in size and contour. There is a 2.2 x 1.3 cm mass at the dome which demonstrates peripheral nodular enhancement and likely represents a hemangioma. The hepatic and portal veins are patent. GALLBLADDER / BILE DUCTS: The gallbladder is unremarkable. There is no intra or extrahepatic biliary ductal dilatation. SPLEEN: The spleen is normal in size. No focal splenic lesion is identified. PANCREAS: The pancreas is unremarkable in appearance. ADRENAL GLANDS: Within normal limits. KIDNEYS/RETROPERITONEUM: There is a punctate nonobstructing calculus at the lower pole of the left kidney. No right renal calculi are identified.. There is no hydronephrosis. No renal masses are identified. The intrarenal collecting systems are unremarkable. The ureters are normal in caliber. No ureteral filling defects are identified. LYMPH NODES: No abdominal or pelvic lymphadenopathy. VASCULATURE: The abdominal aorta is normal in caliber. MESENTERY/PERITONEUM: No free fluid. No masses. There is no free intraperitoneal gas. STOMACH: The stomach is collapsed, limiting evaluation. SMALL BOWEL: The small bowel is normal in caliber. COLON: The colon is unremarkable. APPENDIX: The appendix is not seen, however no inflammatory changes are seen adjacent to the cecum . URINARY BLADDER/PELVIC ORGANS: The urinary bladder is nondistended, limiting evaluation. The uterus is unremarkable. There are bilateral ovarian follicles. BONES / SOFT TISSUES: There is degenerative disc disease at the L5-S1 level. IMPRESSION: 1. Punctate nonobstructing calculus at the lower pole of the left kidney. Otherwise unremarkable CT urogram. Assessment & Plan Assessment & Plan (1) Gross hematuria: Code(s): R31.0 - Gross hematuria Category: Medical (2) Lower urinary tract symptoms: Code(s): R39.9 - Unspecified symptoms and signs involving the genitourinary system Category: Medical (3) Nephrolithiasis: Code(s): N20.0 - Calculus of kidney Category: Medical Plan In office urinalysis results reviewed with the patient today; as noted above; will send for urine cytology. Recent CT urogram results reviewed with the patient today; as noted above. We did discussed importance of adequate hydration relation to nephrolithiasis as well as overall health and well-being. We discussed potential causes of gross hematuria as well as further workup to include in office cystoscopy; risks and benefits were discussed. She currently denies any bothersome urinary issues or concerns. She reports be happy with current voiding parameters. We discussed adding 1 on 2 lemon juice to water daily. Will continue with surveillance monitoring at this time per patient request. Will obtain renal ultrasound in 6 months. Follow-up in 6 months with imaging; or sooner with any issues, concerns, and or questions. Orders: Orders AMB Urinalysis Automated Today Z13.9 - Encounter for screening, unspecified Urine Cytology Today R31.0 - Gross hematuria US renal BI 6 Months N20.0 - Calculus of kidney Patient Instructions: The patient had an opportunity to ask questions regarding the treatment plan. All questions were answered. Physical exam, labs, and imaging were discussed and reviewed in detail. As well as risks, benefits, and discussion of treatment choices. No major barriers to understanding were identified. The patient expressed understanding and agreement with the above treatment plan. The patient was made aware they should contact our office by phone for worsening of their current condition, the appearance of new symptoms, or with any questions or concerns. Compliance is encouraged with any medications and follow up testing that is ordered. It is a privilege to be allowed the opportunity to participate in? your urological care.? Again, if you have any questions or concerns If you have any questions or concerns please do not hesitate to contact me. The office is [phone]. This note is constructed using voice recognition software. While every effort has been made to ensure accuracy welding machine operator friction errors may have been included. Yours sincerely, ROBE Salazar Coding Level of Care Code Est Pt Level 3 (40140) Diagnoses Gross hematuria R31.0 Lower urinary tract symptoms R39.9 Nephrolithiasis N20.0
--- OUTSIDE RECORDS SUMMARY | 2025-07-13 13:06 | XMS_ITS | Clinical Summary ---
Author Organization [facility] Address [address] [place] [address] Phone Care Team Providers Care Home Attendant Name Role Phone David Ojeda MD Primary [...] Tdap 03/01/2014(Deferred: Other - , [place] By: [id number]),12/06/2013,01/23/2011 Family History Medical History Relation Comments Type [...] high school, GED, job training, learning the [place] language, technical skills, or developing parenting [...] FOBT 2023 SIGMOIDOSCOPY 2023 VIRTUAL COLONOSCOPY 2023 INFLUENZA VACCINE (#1) 2025 , 08/10/2020, 08/06/2019, Additional history exists COVID-19 VACCINE ( season) 2025 02/24/2021, 02/03/2021 Adult Td,Tdap Booster 02/03/2028 02/02/2018 [...] - 07/21/2013 12:00 AM EDT Accession Number: [id number] Report Status: Final Type: Cytology Date: 07/21/2013 Ordering Provider: LYNN SWANSON Comment: FASTING: NO DATA PROVIDED COLLECTION DATE: [id number] RECEIVED DATE: SPECIMEN REPORTED DATE: Unless otherwise noted,Test Performed At: [facility] [address] [place] [address], [id number], MORGAN BARRETO M.D. THINPREP TIS PAP AND [...] has been evaluated with computer assisted technology. HEEL COVER SOFTENER: ROSETTA PICHARDO(ASCP) REVIEW HEEL COVER SOFTENER: NOT REPORTED PATHOLOGIST: NOT REPORTED HPV DNA (HIGH RISK) NOT DETECTED NOT DETECTED Tested for high risk types 16,18,31,33,35,39,45,51,52, 56,58,59,68. The analytical performance characteristics of this assay, when used to test SurePath or vaginal specimens, have been determined by [facility]. Methodology: Hybrid Capture with Signal Amplification. us Lynn Swanson MD CYTOLOGY ORDERABLES Final Re sult Performing Organization Address City/State/[facility] Co de Phone Number [facility] [address] [place] [address] * Historical Lab (04/02/2010 12:00 PM EDT) HCG, Quant <6 <6 IU/L [facility] Comment: NON-: <6 BORDERLINE: 6-15 High Density Lipoprotein 62 35 - 100 mg/dl [facility] Cholesterol 190 mg/dl [facility] Comment:DESIRABLE: <200 Triglycerides 41 40 - 150 mg/dl [facility] Low Density Lipoprotein 120 mg/dl [facility] Comment:DESIRABLE: <130 Cardiac Risk Ratio 3.1 [facility] Comment:NORMAL RISK RATIO: 5 .0 OR LESS Plasma Glucose 98 70 - 110 mg/dl [facility] 04/02/2010 12:0 0 PM EDT 04/02/2010 1:51 PM EDT Comment:BLOOD us Rand Salguero MD LAB BLOOD ORDERABLES Final Result [address] [address] from Last 3 Months or Most Recently Relevant to Health Maintenance Insurance [facility] Advance Directives For more information, please contact: [phone] (9AM - 5PM [place], Friday-Friday) Documents on File Type Date Recorded Patient Subassemblies Wirer Expl anation Advance Directive - Non Epic LMR 09/28/2008 12:00 AM Care Teams Home Attendant Relationship Specialty Start Date End Date Croke, David Leroy, MD [address] [place] [address] Dr Motta, JAVON [address] PCP - General Internal Medicine 07/28/23 Self-Referred, Patient 07/28/23 Additional Source Comments The information contained in this document represents components of the legal health record. It is not the complete legal health record.[facility]
== END 2025-07-13 12:09 | disposition home or self-care (01) ==
LOC: HO.HUSH 11:31
PROVIDERS: PCP Internal Medicine; Visit Provider Nurse Practitioner Family
DX: R31.0 Gross hematuria (principal); R39.9 Unspecified symptoms and signs involving the genitourinary system; N20.0 Calculus of kidney; Z13.9 Encounter for screening, unspecified
CPT/HCPCS: 99213